=== PATIENT | male | born 2000 | race Caucasian/White ===

== ENCOUNTER 2023-01-14 08:10 | Outpatient (CLI) | payer BC | END 2023-01-14 08:11 | disposition home or self-care (01) | LOC: CSHULT 08:10 | PROVIDERS: ATTEND Physician Assistant | DX: R77.2 Abnormality of alphafetoprotein (principal); K76.0 Fatty (change of) liver, not elsewhere classified | CPT/HCPCS: 76705 ==

== ENCOUNTER 2023-11-10 09:49 | Outpatient (CLI) | payer BC | END 2023-11-10 09:50 | disposition home or self-care (01) | LOC: CSHULT 09:49 | PROVIDERS: ATTEND Physician Assistant | DX: R77.2 Abnormality of alphafetoprotein (principal) | CPT/HCPCS: 76705 ==